=== PATIENT | male | born 1965 | race African-American/Black ===

== ENCOUNTER 2018-12-03 19:23 | Emergency (ER) | payer OTHER ==
[~2018-12-03] VITALS: Ht 185.4 cm; Wt 95.3 kg
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
--- NOTE | 2018-12-03 19:47 | NUR ---
DR STUART AT BEDSIDE FOR EVAL
[2018-12-03] MEDS ORDERED: MAG HYDROX/AL HYDROX/SIMETH 30 ML UDC ONE (19:58)
[2018-12-03] MEDS ORDERED: MAG HYDROX/AL HYDROX/SIMETH 30 ML UDC PO ONE (20:00)
[2018-12-03 20:02] LABS: BASOPHILS # (AUTO) 0.1 /CMM (0.0-0.2); BASOPHILS % (AUTO) 1.2 % (0.0-2.0); EOSINOPHILS % (AUTO) 2.2 % (0.0-6.0); HEMATOCRIT 40 % (39-51); HEMOGLOBIN 13.9 g/dL (13.5-17.5); LYMPHOCYTES # (AUTO) 2.8 /CMM (0.8-4.8); LYMPHOCYTES % (AUTO) 37.8 % (20.0-44.0); MEAN CORPUSCULAR HGB CONC 35 g/dl (31.0-36.0); MEAN CORPUSCULAR VOLUME 90 fL (80-96); MONOCYTES # (AUTO) 0.5 /CMM (0.1-1.30); MONOCYTES % (AUTO) 6.6 % (2.0-12.0); NEUTROPHILS # (AUTO) 3.8 /CMM (1.8-8.9); NEUTROPHILS % (AUTO) 52.2 % (43.0-81.0); PLATELET COUNT (AUTO) 249 /CMM (150-450); RED BLOOD CELL COUNT(AUTO) 4.46 MIL/uL (4.5-6.0); WHITE BLOOD COUNT (AUTO) 7.3 K/uL (4.3-11.0)
[2018-12-03 20:03] LABS: APPEARANCE,URINE Clear (CLEAR); BILIRUBIN,URINE Negative (NEGATIVE); BLOOD, URINE Negative Ery/uL (NEGATIVE); COLOR,URINE Yellow (YELLOW); KETONES,URINE Trace (NEGATIVE); LEUKOCYTE ESTERASE ,URINE Negative (NEGATIVE); NITRITE, URINE Negative (NEGATIVE); PH,URINE 6.5 (5.0-8.0); PROTEIN,URINE Negative (NEGATIVE); UGLUCOSE Negative (NEGATIVE)
[2018-12-03 20:19] LABS: ALANINE AMINOTRANSFERASE 20 U/L (12-78); ALBUMIN 3.3 g/dL (3.4-5.0); ALKALINE PHOSPHATASE 73 U/L (46-116); ASPARTATE AMINOTRANSFERASE 9 U/L (15-37); BILIRUBIN,TOTAL 0.2 mg/dL (0.2-1.0); CALCIUM, SERUM 8.9 mg/dL (8.5-10.1); CREATININE 1.3 mg/dL (0.6-1.3); GLUCOSE 105 mg/dL (74-106); LIPASE 345 U/L (73-393); TOTAL PROTEIN, SERUM 6.8 g/dL (6.4-8.2); UREA NITROGEN, BLOOD 17 mg/dL (7-18)
[2018-12-03 20:44] LABS: CARBON DIOXIDE 23 mmol/L (21-32); CHLORIDE 106 mmol/L (98-107); POTASSIUM 3.9 mmol/L (3.5-5.1); SODIUM SERUM 140 mmol/L (136-145)
--- NOTE | 2018-12-03 20:50 | NUR ---
PT STILL COMPLAINS OF ABDOMINALPAIN, MADE CASA SOSA AWARE
[2018-12-03 20:52] LABS: BACTERIA,URINE None seen /HPF (None Seen); RBC,URINE 0-2 /HPF (0-2); SQUAMOUS EPITHELIAL CELL,UR Few /HPF (None Seen); WBC,URINE 0-2 /HPF (0-3)
[2018-12-03] MEDS ORDERED: HYDROCODONE/APAP 5/325MG 1 EACH TABLET ONE (20:57)
[2018-12-03] MEDS ORDERED: SUCRALFATE 1 G TABLET ONE (20:57)
[2018-12-03] MEDS ORDERED: SUCRALFATE 1 G TABLET PO ONE (21:00)
[2018-12-03] MEDS ORDERED: HYDROCODONE/APAP 5/325MG 1 EACH TABLET PO ONE (21:00)
--- NOTE | 2018-12-03 21:16 | NUR ---
CLINICALS FAXED TO ROSALEE MELENDEZ [facility] [phone]
--- NOTE | 2018-12-03 21:52 | NUR ---
PROVIDED PT W SANDWICH AND WATER. TOLERATING PO WELL.
--- NOTE | 2018-12-03 22:07 | NUR ---
PER WING FROM [facility] TO TRANSFER PT BACK TO FACILITY.
--- NOTE | 2018-12-03 22:13 | NUR ---
ATIYA PATEL 10:45 PM TRIP [id number]
[2018-12-03 22:42] VITALS: BP 132/83
--- NOTE | 2018-12-03 22:42 | NUR ---
REPORT GIVEN TO [facility] EMT, PT AWARE OF TRANSPORTATION TO [facility]. PT VSS. PER SHER TOOK OVER CARE. PT TO BE TRANSFERRED VIA GURNEY.
--- NOTE | 2018-12-03 22:47 | NUR ---
Patient discharged to [facility] UNIT 113 in stable condition, going to [facility]. Written and verbal after care instructions given. Patient verbalizes understanding of instruction.
== END 2018-12-03 22:49 ==
LOC: ER 19:29
DX: K29.70 Gastritis, unspecified, without bleeding (principal); I10 Essential (primary) hypertension; F17.200 Nicotine dependence, unspecified, uncomplicated; F20.9 Schizophrenia, unspecified; J44.9 Chronic obstructive pulmonary disease, unspecified; M19.90 Unspecified osteoarthritis, unspecified site
CPT/HCPCS: 36415; 71045; 80048; 80076; 81001; 83690; 84484; 85025; 93005; 99285; 99406; A4606; 81000-TC

== ENCOUNTER 2019-09-02 09:18 | Emergency (ER) | payer OTHER ==
[~2019-09-02] VITALS: Ht 185.4 cm; Wt 93.0 kg
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
--- NOTE | 2019-09-02 09:29 | NUR ---
urine collected and sent to lab
--- NOTE | 2019-09-02 09:30 | NUR ---
called security for wanding
--- NOTE | 2019-09-02 09:30 | NUR ---
security at bedside for wanding
[2019-09-02 09:58] LABS: APPEARANCE,URINE Clear (CLEAR); BASOPHILS # (AUTO) 0.2 /CMM (0.0-0.2); BASOPHILS % (AUTO) 2.1 % (0.0-2.0); BILIRUBIN,URINE Negative (NEGATIVE); BLOOD, URINE Negative Ery/uL (NEGATIVE); COLOR,URINE Yellow (YELLOW); EOSINOPHILS % (AUTO) 0.1 % (0.0-6.0); HEMATOCRIT 45 % (39-51); KETONES,URINE Trace (NEGATIVE); LEUKOCYTE ESTERASE ,URINE Negative (NEGATIVE); LYMPHOCYTES # (AUTO) 1.8 /CMM (0.8-4.8); LYMPHOCYTES % (AUTO) 20.4 % (20.0-44.0); MEAN CORPUSCULAR HGB CONC 33 g/dl (31.0-36.0); MEAN CORPUSCULAR VOLUME 92 fL (80-96); MONOCYTES # (AUTO) 0.5 /CMM (0.1-1.30); MONOCYTES % (AUTO) 5.2 % (2.0-12.0); NEUTROPHILS # (AUTO) 6.5 /CMM (1.8-8.9); NEUTROPHILS % (AUTO) 72.2 % (43.0-81.0); NITRITE, URINE Negative (NEGATIVE); PH,URINE 5.5 (5.0-8.0); PROTEIN,URINE Negative (NEGATIVE); UGLUCOSE Negative (NEGATIVE); UROBILINOGEN,URINE 0.2 EU/dL (0.2)
[2019-09-02 10:08] LABS: BACTERIA,URINE None seen /HPF (None Seen); RBC,URINE 0-2 /HPF (0-2); SQUAMOUS EPITHELIAL CELL,UR Rare /HPF (None Seen); WBC,URINE 0-2 /HPF (0-3)
[2019-09-02 10:16] LABS: ALANINE AMINOTRANSFERASE 28 U/L (12-78); ALCOHOL, BLOOD < 3 mg/dL (0-0); ALKALINE PHOSPHATASE 68 U/L (46-116); ASPARTATE AMINOTRANSFERASE 35 U/L (15-37); BILIRUBIN,DIRECT 0.1 mg/dL (0.0-0.2); BILIRUBIN,TOTAL 0.7 mg/dL (0.2-1.0); CALCIUM, SERUM 9.1 mg/dL (8.5-10.1); CARBON DIOXIDE 23 mmol/L (21-32); CREATININE 1.2 mg/dL (0.6-1.3); GLUCOSE 98 mg/dL (74-106); TOTAL PROTEIN, SERUM 7.7 g/dL (6.4-8.2); UREA NITROGEN, BLOOD 16 mg/dL (7-18)
[2019-09-02 10:17] LABS: ACETAMINOPHEN 0 ug/ml (10-30); SALICYLATE 0.3 mg/dL (2.8-20.0)
[2019-09-02] MEDS ORDERED: AMLODIPINE BESYLATE 5 MG TABLET PO ONE ×2 (10:30→13:30)
[2019-09-02] MEDS ORDERED: AMLODIPINE BESYLATE 5 MG TABLET ONE ×2 (10:43→13:57)
[2019-09-02 10:54] LABS: CHLORIDE 102 mmol/L (98-107); POTASSIUM 3.8 mmol/L (3.5-5.1); SODIUM SERUM 138 mmol/L (136-145)
[2019-09-02 10:59] LABS: ALBUMIN 4.1 g/dL (3.4-5.0)
--- NOTE | 2019-09-02 11:52 | NUR ---
CALLED [facility] FOR CRISIS. ADVISED ME TO CALL [employer] FOR PLACEMENT.
--- NOTE | 2019-09-02 11:53 | NUR ---
CALLED [employer] [employer], NO ANSWER.
--- NOTE | 2019-09-02 13:12 | NUR ---
[facility] ETA [id number].
--- NOTE | 2019-09-02 13:16 | NUR ---
marketing services vice president consult requested by ER for evaluation. Pt is a 54 year old male who was admitted to [facility] for suicidal. Pt was alert and oriented x 4 (self, place, time, situation). Pt was cooperative and calm. Pt states he is currently experiencing suicidal ideation and has come to the ER to have his blood pressure stabilized. Pt states he voluntarily went to [facility] [[id number] [place] [address]; [phone]] this morning but was told he needed medical clearance before being able to be admitted because his blood pressure was too high. TIFFANIE confirmed with Noble, Flight Physician at [facility], who confirmed that they have beds and accommodations will be made once pt is discharged from the ER. No other services needed at this time. SW available if needed.
--- NOTE | 2019-09-02 14:35 | NUR ---
pt refused platelet re-draw
[2019-09-02 15:29] VITALS: BP 161/90
--- NOTE | 2019-09-02 15:29 | NUR ---
patient left in stable condition, medically cleared by [facility] In no distress.
== END 2019-09-02 15:29 ==
LOC: ER 09:21
DX: R45.851 Suicidal ideations (principal); I10 Essential (primary) hypertension; J44.9 Chronic obstructive pulmonary disease, unspecified; F17.210 Nicotine dependence, cigarettes, uncomplicated; F20.9 Schizophrenia, unspecified; F15.10 Other stimulant abuse, uncomplicated; F13.10 Sedative, hypnotic or anxiolytic abuse, uncomplicated
CPT/HCPCS: 36415; 80048; 80076; 80305; 80307; 80329; 81001; 85025; 99285; 99406; G0480; 81000-TC